=== PATIENT | male | born 1955 | race Hispanic/Latino ===

== ENCOUNTER 2021-08-19 17:13 | Inpatient (IN) | payer MEDICARE, BC ==
[2021-08-19 18:14] LABS: #Eosinphils 0.1 thou/uL (0.0-0.7); #Lymphocytes 0.9 thou/uL (1.20-3.40); #Monocytes 0.7 thou/uL (0.11-0.59); #Neutrophils 7.8 thou/uL (1.40-6.50); %Basophils 0.5 % (0.0-1.0); %Eosinophils 0.9 % (0.0-10.0); %Lymphocytes 9.6 % (21.0-51.0); %Neutrophils 82.1 % (42.0-75.0); Hemoglobin 9.5 g/dL (14.0-18.0); Mean Corpuscular HGB CONC 33.8 g/dL (32.0-36.0); Mean Corpuscular Hemoglobin 30.5 pg (27.0-31.0); Mean Corpuscular Volume 90.2 fL (78.0-98.0); Mean Platelet Volume 7.6 fL (7.4-10.4); Platelet Count 335 thou/uL (130-400); RBC Distribution Width 12.6 % (11.5-14.5); Red Blood Cell (RBC) Count 3.13 mill/uL (4.70-6.10); White Blood Cell (WBC) Count 9.5 thou/uL (4.8-10.8)
[2021-08-19 18:37] LABS: ALT (SGPT) 17 U/L (8-55); AST (SGOT) 18 U/L (5-34); Albumin 3.7 g/dL (3.4-4.8); Alkaline Phosphatase 94 U/L (40-110); Anion Gap 22 mmol/L (10-20); Bilirubin, Total 0.5 mg/dL (0.2-1.2); CK (CPK) 275 U/L (30-200); Calc. Creatinine Clearance 0 mL/min (70-130); Calcium 7.6 mg/dL (7.8-10.44); Carbon Dioxide 14 mmol/L (23-31); Chloride 101 mmol/L (98-107); Globulin 4.1 g/dL (2.4-3.5); Glucose 147 mg/dL (80-115); Potassium 5.3 mmol/L (3.5-5.1); Protein, Total 7.8 g/dL (5.8-8.1); Sodium 132 mmol/L (136-145)
[2021-08-19 18:50] LABS: BUN (Urea Nitrogen) 126 mg/dL (8.4-25.7)
[2021-08-19 18:59] LABS: Bilirubin Negative (Negative); Blood, Urine Negative (Negative); Clarity Clear (Clear); Glucose, Urine (Dipstick) Normal (Negative); Ketone, Urine Negative (Negative); Leukocyte Negative Leu/uL (Negative); Nitrite Negative (Negative); Protein, Urine (Dipstick) 100 mg/dL (Neg-Trace); RBC/HPF 0-3 HPF (0-3); Squamous Epithelial 0-3 HPF (0-3); Urobilinogen Normal mg/dL (Less than 2); WBC/HPF 0-3 HPF (0-3)
[2021-08-19 19:04] LABS: Bacteria/HPF 1+ HPF (None Seen)
[2021-08-19] MEDS ORDERED: Calcium Gluc 4.6 MEQ/10 ML (100 MG/ML) ONE (19:45)
[2021-08-19] MEDS ORDERED: Dextrose 50% Abboject 50 ML SYRINGE ONE (19:48)
[2021-08-19] MEDS ORDERED: Sodium Bicarb 50 MEQ/50 ML Abboject 8.4% SYRINGE ONE ×2 (20:09→20:10)
[2021-08-19] MEDS ORDERED: Insulin Regular 300 UNITS/3 ML VIAL ONE (20:09)
[2021-08-19] MEDS ORDERED: Senokot S 8.6-50 MG TAB PO PRN (22:04)
[2021-08-19] MEDS ORDERED: HumaLOG 300 UNITS/3 ML VIAL SC PRN ×2 (22:12)
[2021-08-19] MEDS ORDERED: Dextrose 50% Abboject 50 ML SYRINGE SLOW IVP PRN (22:12)
[2021-08-19] MEDS ORDERED: Dextrose 5% in Water 1,000 ML IV PRN (22:12)
[2021-08-19 22:40] LABS: Potassium 4.4 mmol/L (3.5-5.1)
[2021-08-20 05:17] LABS: #Eosinphils 0.1 thou/uL (0.0-0.7); #Lymphocytes 1.1 thou/uL (1.20-3.40); #Monocytes 0.9 thou/uL (0.11-0.59); #Neutrophils 5.3 thou/uL (1.40-6.50); %Basophils 0.6 % (0.0-1.0); %Eosinophils 1.8 % (0.0-10.0); %Lymphocytes 14.9 % (21.0-51.0); %Neutrophils 70.7 % (42.0-75.0); Hemoglobin 9.1 g/dL (14.0-18.0); Mean Corpuscular Hemoglobin 31.3 pg (27.0-31.0); Mean Corpuscular Volume 89.4 fL (78.0-98.0); Mean Platelet Volume 8.3 fL (7.4-10.4); Platelet Count 329 thou/uL (130-400); RBC Distribution Width 12.4 % (11.5-14.5); White Blood Cell (WBC) Count 7.5 thou/uL (4.8-10.8)
[2021-08-20 05:22] LABS: Hemoglobin A1c 5.8 % (4.0-6.0)
[2021-08-20 05:39] LABS: ALT (SGPT) 16 U/L (8-55); AST (SGOT) 19 U/L (5-34); Albumin 3.6 g/dL (3.4-4.8); Alkaline Phosphatase 82 U/L (40-110); Anion Gap 24 mmol/L (10-20); Bilirubin, Total 0.4 mg/dL (0.2-1.2); Calc. Creatinine Clearance 8 mL/min (70-130); Calcium 7.6 mg/dL (7.8-10.44); Carbon Dioxide 15 mmol/L (23-31); Chloride 103 mmol/L (98-107); Globulin 3.7 g/dL (2.4-3.5); Glucose 85 mg/dL (80-115); Magnesium 2.1 mg/dL (1.6-2.6); Potassium 4.2 mmol/L (3.5-5.1); Protein, Total 7.3 g/dL (5.8-8.1); Sodium 138 mmol/L (136-145)
[2021-08-20 05:51] LABS: BUN (Urea Nitrogen) 125 mg/dL (8.4-25.7)
[2021-08-20 05:59] LABS: Phosphorus 10.3 mg/dL (2.3-4.7)
[2021-08-20 06:42] VITALS: BMI 28.1
[2021-08-20] MEDS ORDERED: CEFAZOLIN 2 GM in Premix Bag 1 BAG IVPB SCH (08:30)
[2021-08-20 09:17] LABS: SARS-CoV-2 NAA Rapid Test Not Detected (NotDetected)
[2021-08-20 09:53] LABS: Iron Binding Capacity, Total 263 mcg/dL (261-462)
[2021-08-20 09:54] LABS: Iron 38 ug/dL (65-175)
[2021-08-20] MEDS: Ferrous Gluconate 324 MG TAB PO SCH ×2 (11:05→18:10)
[2021-08-20] MEDS: Sevelamer Carbonate 800 MG TAB PO SCH ×3 (11:08→18:10)
[2021-08-20] MEDS: Carvedilol 6.25 MG TAB PO SCH ×2 (11:08→20:07)
[2021-08-20] MEDS: Tamsulosin HCl 0.4 MG CAP PO SCH (11:08)
[2021-08-20] MEDS ORDERED: ceFAZolin Sodium (SDC) 2 GM/100 ML BAG ONE (11:45)
[2021-08-20] MEDS ORDERED: Midazolam HCl 2 mg/2 ml Vial ONE (12:39)
[2021-08-20] MEDS ORDERED: Fentanyl 100 MCG/2 ML VIAL ONE (12:39)
[2021-08-20] MEDS ORDERED: Heparin 5,000 UNITS/ML VIAL ONE (12:42)
[2021-08-20] MEDS ORDERED: Heparin 10,000 UNITS/ 10 ML VIAL ONE (12:43)
[2021-08-20] MEDS ORDERED: Lidocaine 1% w/Epinephrine 1:100K 20 ML VIAL ONE (12:44)
[2021-08-20] MEDS ORDERED: Sodium Chloride 0.9% 40 ML ONE (12:44)
[2021-08-20] MEDS ORDERED: Bupivacaine PF 0.5% 30 ML VIAL ONE (12:44)
[2021-08-20] MEDS ORDERED: PROPOFOL 200 MG/20 ML VIAL ONE (13:04)
[2021-08-20] MEDS ORDERED: ceFAZolin Sodium/D5W 2 GM in Premix Bag 1 BAG IVPB SCH (13:15)
[2021-08-20] MEDS ORDERED: Ondansetron HCl/PF 4 MG/2 ML Vial IVP PRN (13:39)
[2021-08-20] MEDS ORDERED: Promethazine HCl 25 MG/ML VIAL IM PRN (13:39)
[2021-08-20] MEDS ORDERED: Promethazine HCl 25 MG/ML VIAL IVPB PRN (13:39)
[2021-08-20 16:00] LABS: Hep B Surf AB NonReactive (NonReactive)
[2021-08-20 16:01] LABS: HBSAg Index 0.26 S/CO (0-0.99); Hep B Core Total Ab NonReactive (NonReactive); Hep B Core Total Index 0.09 S/CO (0-0.79); Hep B Surf Ag NonReactive S/CO (NonReactive); Hep C IgG Ab NonReactive (NonReactive); Hep C Index 0.05 S/CO (0-0.79)
[2021-08-20 16:02] LABS: HBSAB Concentration Less than 8.00 mIU/mL
[2021-08-20] MEDS: Atorvastatin Calcium 10 MG TAB PO SCH (20:10)
[2021-08-20] MEDS: Acetaminophen 325 MG TAB PO PRN (20:12)
[2021-08-21 05:11] LABS: Anion Gap 19 mmol/L (10-20); Calc. Creatinine Clearance 11 mL/min (70-130); Calcium 7.2 mg/dL (7.8-10.44); Carbon Dioxide 21 mmol/L (23-31); Chloride 105 mmol/L (98-107); Glucose 110 mg/dL (80-115); Potassium 3.7 mmol/L (3.5-5.1); Sodium 141 mmol/L (136-145)
[2021-08-21 05:19] LABS: Eosinophils 5 % (0-10); Hemoglobin 8.6 g/dL (14.0-18.0); Lymphocytes 10 % (21-51); MDiff Complete? YES; Mean Corpuscular Hemoglobin 29.6 pg (27.0-31.0); Mean Corpuscular Volume 89.7 fL (78.0-98.0); Mean Platelet Volume 7.6 fL (7.4-10.4); Monocytes 10 % (0-10); Neutrophil 75 % (42-75); Platelet Count 299 thou/uL (130-400); Platelet Morphology Comment Appears Adequate; RBC Distribution Width 12.7 % (11.5-14.5); RBC Morphology Normal; Red Blood Cell (RBC) Count 2.89 mill/uL (4.70-6.10); White Blood Cell (WBC) Count 8.3 thou/uL (4.8-10.8)
[2021-08-21 05:22] LABS: BUN (Urea Nitrogen) 129 mg/dL (8.4-25.7)
[2021-08-21] MEDS ORDERED: FLU VACC QS2021-22(65YR UP)/PF 240 MCG/0.7 ML SYRINGE IM ONE (09:00)
[2021-08-21] MEDS ORDERED: Heparin 10,000 UNITS/ 10 ML VIAL ONE (10:09)
[2021-08-21] MEDS: Carvedilol 25 MG TAB PO SCH ×2 (13:26→17:38)
[2021-08-21] MEDS: Sevelamer Carbonate 800 MG TAB PO SCH ×3 (13:26→16:45)
[2021-08-21] MEDS: Ferrous Gluconate 324 MG TAB PO SCH ×2 (13:26→16:45)
[2021-08-21] MEDS: Tamsulosin HCl 0.4 MG CAP PO SCH (13:27)
[2021-08-21] MEDS: Ondansetron PF 4 MG/2 ML Vial IVP PRN (13:29)
[2021-08-21] MEDS ORDERED: ceFAZolin Sodium/D5W 2 GM in Premix Bag 1 BAG IVPB SCH (13:45)
[2021-08-21] MEDS ORDERED: NIFEdipine XL 30 MG TAB PO SCH (17:30)
[2021-08-21] MEDS: Atorvastatin Calcium 10 MG TAB PO SCH (21:29)
[2021-08-21] MEDS: hydrALAZINE 20 MG/ML VIAL SLOW IVP PRN (21:29)
[2021-08-21] MEDS ORDERED: Metoclopramide HCl 10 MG/2 ML VIAL IVP SCH (21:45)
[2021-08-22] MEDS: Carvedilol 25 MG TAB PO SCH ×2 (06:15→18:08)
[2021-08-22] MEDS ORDERED: Cepastat Lozenges 1 LOZ PO PRN (06:44)
[2021-08-22] MEDS ORDERED: Benzonatate 100 MG CAP PO PRN (06:44)
[2021-08-22] MEDS ORDERED: Loperamide HCl 2 MG CAP PO PRN (06:44)
[2021-08-22] MEDS ORDERED: Loratadine 10 MG TAB PO PRN (06:44)
[2021-08-22] MEDS ORDERED: Hydrocerin (Eucerin) Cream 120 gm Jar TOP PRN (06:44)
[2021-08-22] MEDS ORDERED: Zolpidem Tartrate 5 MG TAB PO PRN (06:44)
[2021-08-22] MEDS ORDERED: Artificial Tear Sol 15 ML BOT EA EYE PRN (06:44)
[2021-08-22] MEDS ORDERED: Sodium Chloride 0.65% Nasal 44 ML BOT EA NARE PRN (06:44)
[2021-08-22] MEDS ORDERED: GUAIFENESIN SF SOLN 200 MG/10 ML UDCUP PO PRN (06:44)
[2021-08-22] MEDS ORDERED: Ondansetron ODT 4 MG TAB PO PRN (06:44)
[2021-08-22] MEDS: Ferrous Gluconate 324 MG TAB PO SCH ×2 (09:53→18:08)
[2021-08-22] MEDS: Sevelamer Carbonate 800 MG TAB PO SCH ×3 (09:53→18:12)
[2021-08-22] MEDS: NIFEdipine XL 30 MG TAB PO SCH (09:55)
[2021-08-22] MEDS: Tamsulosin HCl 0.4 MG CAP PO SCH (09:55)
[2021-08-22] MEDS ORDERED: Heparin 10,000 UNITS/ 10 ML VIAL ONE (10:06)
[2021-08-22] MEDS ORDERED: ceFAZolin Sodium (SDC) 2 GM/100 ML BAG ONE (13:11)
[2021-08-22] MEDS ORDERED: Fentanyl 100 MCG/2 ML VIAL ONE (15:23)
[2021-08-22] MEDS ORDERED: Midazolam HCl 2 mg/2 ml Vial ONE (15:23)
[2021-08-22] MEDS ORDERED: Bupivacaine PF 0.5% 30 ML VIAL ONE (15:35)
[2021-08-22] MEDS ORDERED: Lidocaine 1% w/Epinephrine 1:100K 20 ML VIAL ONE (15:35)
[2021-08-22] MEDS ORDERED: Heparin 5,000 UNITS/ML VIAL ONE (15:35)
[2021-08-22] MEDS ORDERED: Ketamine 50 MG/ML (10ML VIAL) ONE (15:46)
[2021-08-22] MEDS ORDERED: PROPOFOL 200 MG/20 ML VIAL ONE (16:01)
[2021-08-22] MEDS ORDERED: Lidocaine 1% PF 5 ML VIAL ONE (16:01)
[2021-08-22] MEDS ORDERED: Protamine Sulfate 50 MG/5 ML VIAL ONE (16:24)
[2021-08-22] MEDS ORDERED: Acetaminophen 500 MG TAB PO PRN (17:26)
[2021-08-22] MEDS: Atorvastatin Calcium 10 MG TAB PO SCH (21:54)
[2021-08-22] MEDS: hydrALAZINE 20 MG/ML VIAL SLOW IVP PRN (21:55)
[2021-08-23] MEDS: Calcium Carbonate 500 MG ChewTAB PO PRN (00:29)
[2021-08-23] MEDS ORDERED: Nitroglycerin 0.4 MG TAB (25 Tab Bottle) ONE (02:09)
[2021-08-23] MEDS: Nitroglycerin 0.4 MG TAB (25 Tab Bottle) SL PRN ×2 (02:15→02:20)
[2021-08-23] MEDS: hydrALAZINE 20 MG/ML VIAL SLOW IVP PRN ×2 (02:26→06:10)
[2021-08-23 03:09] LABS: Troponin I 0.026 ng/mL (< 0.028)
[2021-08-23] MEDS: Acetaminophen 325 MG TAB PO PRN (03:30)
[2021-08-23] MEDS ORDERED: Labetalol HCl 100 MG/20 ML VIAL SLOW IVP SCH (04:15)
[2021-08-23 05:32] LABS: Troponin I 0.024 ng/mL (< 0.028)
[2021-08-23] MEDS: Carvedilol 25 MG TAB PO SCH ×2 (08:06→17:22)
[2021-08-23] MEDS: Ferrous Gluconate 324 MG TAB PO SCH ×2 (08:06→17:18)
[2021-08-23] MEDS: NIFEdipine XL 30 MG TAB PO SCH ×2 (08:07→20:08)
[2021-08-23] MEDS: Sevelamer Carbonate 800 MG TAB PO SCH ×3 (08:07→17:18)
[2021-08-23] MEDS: Tamsulosin HCl 0.4 MG CAP PO SCH (08:07)
[2021-08-23] MEDS ORDERED: Heparin 10,000 UNITS/ 10 ML VIAL ONE (10:31)
[2021-08-23] MEDS: Ondansetron PF 4 MG/2 ML Vial IVP PRN (13:38)
[2021-08-23] MEDS: hydrALAZINE 25 MG TAB PO SCH ×2 (17:18→20:09)
[2021-08-23] MEDS: Atorvastatin Calcium 10 MG TAB PO SCH (20:09)
[2021-08-24] MEDS: NIFEdipine XL 30 MG TAB PO SCH ×2 (09:16→22:32)
[2021-08-24] MEDS: Tamsulosin HCl 0.4 MG CAP PO SCH (09:16)
[2021-08-24] MEDS: Carvedilol 25 MG TAB PO SCH ×2 (09:16→16:31)
[2021-08-24] MEDS: hydrALAZINE 25 MG TAB PO SCH ×3 (09:16→22:31)
[2021-08-24] MEDS: Ferrous Gluconate 324 MG TAB PO SCH ×2 (09:16→16:31)
[2021-08-24] MEDS: Sevelamer Carbonate 800 MG TAB PO SCH ×3 (09:17→16:43)
[2021-08-24] MEDS: Calcium Carbonate 500 MG ChewTAB PO PRN (13:24)
[2021-08-24] MEDS: Atorvastatin Calcium 10 MG TAB PO SCH (22:31)
[2021-08-25] MEDS: Carvedilol 25 MG TAB PO SCH ×2 (08:32→17:48)
[2021-08-25] MEDS: Tamsulosin HCl 0.4 MG CAP PO SCH (08:32)
[2021-08-25] MEDS: hydrALAZINE 25 MG TAB PO SCH ×3 (08:32→20:49)
[2021-08-25] MEDS: NIFEdipine XL 30 MG TAB PO SCH ×2 (08:32→20:49)
[2021-08-25] MEDS: Sevelamer Carbonate 800 MG TAB PO SCH ×3 (08:33→17:48)
[2021-08-25] MEDS: Ferrous Gluconate 324 MG TAB PO SCH ×2 (08:33→17:48)
[2021-08-25] MEDS ORDERED: Heparin 10,000 UNITS/ 10 ML VIAL ONE (10:40)
[2021-08-25] MEDS: Atorvastatin Calcium 10 MG TAB PO SCH (20:49)
[2021-08-26] MEDS: Sevelamer Carbonate 800 MG TAB PO SCH ×3 (09:08→17:41)
[2021-08-26] MEDS: hydrALAZINE 25 MG TAB PO SCH ×3 (09:08→21:00)
[2021-08-26] MEDS: Carvedilol 25 MG TAB PO SCH ×2 (09:08→17:41)
[2021-08-26] MEDS: NIFEdipine XL 30 MG TAB PO SCH ×2 (09:08→21:01)
[2021-08-26] MEDS: Tamsulosin HCl 0.4 MG CAP PO SCH (09:08)
[2021-08-26] MEDS: Ferrous Gluconate 324 MG TAB PO SCH ×2 (09:09→17:41)
[2021-08-26] MEDS: Atorvastatin Calcium 10 MG TAB PO SCH (21:01)
[2021-08-27] MEDS ORDERED: Labetalol HCl 100 MG/20 ML VIAL ONE (04:50)
[2021-08-27] MEDS: NIFEdipine XL 30 MG TAB PO SCH (08:35)
[2021-08-27] MEDS: Tamsulosin HCl 0.4 MG CAP PO SCH (08:36)
[2021-08-27] MEDS: hydrALAZINE 25 MG TAB PO SCH ×2 (08:36→15:49)
[2021-08-27] MEDS: Carvedilol 25 MG TAB PO SCH (08:36)
[2021-08-27] MEDS: Ferrous Gluconate 324 MG TAB PO SCH (08:36)
[2021-08-27] MEDS: Sevelamer Carbonate 800 MG TAB PO SCH ×2 (08:37→12:23)
[2021-08-27] MEDS ORDERED: Heparin 10,000 UNITS/ 10 ML VIAL ONE (09:19)
[2021-08-27 15:48] VITALS: BP 142/74; TEMP 98.1
[2021-08-27 17:11] LABS: SARS-CoV-2 PCR by NAA Not Detected (NotDetected)
== END 2021-08-27 20:05 | disposition home or self-care (01) | DRG 673 ==
LOC: ERS 17:13 → 2SW 20:19 → OBSVTOIN 20:19 → T4-B 08-22 09:18 → NEURO 08-23 04:03 → T4-A 08-25 16:26
PROVIDERS: ADMIT Internal Medicine; ATTEND Internal Medicine
PROC: 0JH63XZ Insertion of Tunneled Vascular Access Device into Chest Subcutaneous Tissue and Fascia, Percutaneous Approach (ICD-10-PCS; 2021-08-20)
PROC: 02HV33Z Insertion of Infusion Device into Superior Vena Cava, Percutaneous Approach (ICD-10-PCS; 2021-08-20)
PROC: B548ZZA Ultrasonography of Superior Vena Cava, Guidance (ICD-10-PCS; 2021-08-20)
PROC: 5A1D70Z Performance of Urinary Filtration, Intermittent, Less than 6 Hours Per Day (ICD-10-PCS; 2021-08-20)
PROC: 031C0ZF Bypass Left Radial Artery to Lower Arm Vein, Open Approach (ICD-10-PCS; principal; 2021-08-22)
DX: I12.0 Hypertensive chronic kidney disease with stage 5 chronic kidney disease or end stage renal disease (principal); J96.01 Acute respiratory failure with hypoxia; N18.6 End stage renal disease; N17.9 Acute kidney failure, unspecified; E87.2 Acidosis; N25.81 Secondary hyperparathyroidism of renal origin; E87.5 Hyperkalemia; Z20.822 Contact with and (suspected) exposure to COVID-19; E11.22 Type 2 diabetes mellitus with diabetic chronic kidney disease; E78.5 Hyperlipidemia, unspecified; R33.9 Retention of urine, unspecified; K21.00 Gastro-esophageal reflux disease with esophagitis, without bleeding; D63.1 Anemia in chronic kidney disease; F17.210 Nicotine dependence, cigarettes, uncomplicated; E83.39 Other disorders of phosphorus metabolism; Z79.899 Other long term (current) drug therapy; Z79.82 Long term (current) use of aspirin; I25.2 Old myocardial infarction
CPT/HCPCS: 36415; 36416; 71045; 80048; 80053; 81003; 81015; 82550; 82728; 83036; 83540; 83550; 83735; 83880; 84100; 84484; 85025; 86704; 86706; 86803; 87340; 90935; 93005; 93010; 93306; 93970; 96374; 96375; C1751; C1752; C1776; G0257; J0360; J0610; J0690; J1644; J1815; J2250; J2405; J2704; J2720; J2765; J3010; S0020; U0002; U0003; U0005

== ENCOUNTER 2024-07-01 08:35 | Outpatient (CLI) | payer OTHER | END 2024-07-01 08:36 | disposition home or self-care (01) | LOC: NM 08:35 | PROVIDERS: ATTEND Psychiatry & Neurology Neurology | DX: G20.A1 Parkinson's disease without dyskinesia, without mention of fluctuations (principal); R94.02 Abnormal brain scan | CPT/HCPCS: 78803; A9584 ==